=== PATIENT | male | born 1975 ===

== ENCOUNTER 2018-02-14 10:19 | Emergency (ER) | payer OTHER ==
[2018-02-14 10:32] VITALS: BP 145/82; PULSE 77; TEMP 98; O2SAT 97
[2018-02-14 10:33] VITALS: BMI 31.7
[2018-02-14] MEDS ORDERED: Silver Sulfadiazine 1% Cream (20 gm) TOP STA (10:53)
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
== END 2018-02-14 11:37 | disposition home or self-care (01) ==
LOC: H.ER 10:19
DX: T30.0 Burn of unspecified body region, unspecified degree (principal)